=== PATIENT | male | born 2000 | race Caucasian/White ===

== ENCOUNTER 2024-02-03 13:50 | Emergency (ER) | payer SELFPAY ==
[2024-02-03] MEDS: Ibuprofen 400 MG Tab PO ONE (14:09)
== END 2024-02-03 15:43 | disposition home or self-care (01) ==
LOC: FB.ED 13:50
DX: S93.401A Sprain of unspecified ligament of right ankle, initial encounter (principal); F17.200 Nicotine dependence, unspecified, uncomplicated; W01.0XXA Fall on same level from slipping, tripping and stumbling without subsequent striking against object, initial encounter; Y93.64 Activity, baseball
CPT/HCPCS: 73590-RT; 73610-RT; 99283; A9270-GY